=== PATIENT | female | born 1960 | race Caucasian/White ===

== ENCOUNTER 2017-02-13 18:08 | Emergency (ER) | payer BC, OTHER ==
[2017-02-13 18:39] VITALS: BP 127/81
[2017-02-13] MEDS ORDERED: methylPREDNISolone 125 MG* 2 ML VIAL IM ONE (18:51)
--- NOTE | 2017-02-13 18:56 | UC ---
Lower Extremity/Ankle HPI - HPI Summary HPI Summary: Patient has had sudden redness itching of bilateral lower extremities, they are not swollen, she also states her back and face have been itching. starte around 4 hours ago - History of Current Complaint Chief Complaint: UCLowerExtremity Stated Complaint: RIGHT LEG SWELLING Hx Obtained From: Patient Hx Last Menstrual Period: n/a ?: No Onset/Duration: Sudden Onset, Lasting Weeks Severity Initially: Moderate Severity Currently: Moderate Aggravating Factor(s): Standing, Ambulation Alleviating Factor(s): Rest Able to Bear Weight: Yes - Allergies/Home Medications Allergies/Adverse Reactions: Allergies Allergy/AdvReac Type Severity Reaction Status Date / Time Molds & Smuts Allergy Severe Hives Verified 02/13/17 18:39 Penicillins Allergy Severe Hives Verified 02/13/17 18:39 Cefprozil [From Cefzil] Allergy Intermediate Hives Verified 02/13/17 18:39 Tree Nuts Allergy Hives Verified 02/13/17 18:39 Home Medications: Home Medications Dapagliflozin Propanediol [Farxiga] 5 mg PO DAILY 02/13/17 [History Confirmed ] PMH/Surg Hx/FS Hx/Imm Hx Previously Healthy: Yes Endocrine History: Diabetes - Surgical History Surgical History: Yes Surgery Procedure, Year, and Place: Hysterectomy, Fusion C5-6-7, , cholecystectomy. Open heart surgery valve repair age 15. - Social History Alcohol Use: None Substance Use Type: None Smoking Status (MU): Never Smoked Tobacco - Immunization History Most Recent Influenza Vaccination: no Review of Systems Constitutional: Negative Skin: Rash Eyes: Negative ENT: Negative Respiratory: Negative Cardiovascular: Negative Gastrointestinal: Negative Genitourinary: Negative Motor: Negative Neurovascular: Negative Musculoskeletal: Negative Neurological: Negative Psychological: Negative Is Patient Immunocompromised?: No All Other Systems Reviewed And Are Negative: Yes Physical Exam Triage Information Reviewed: Yes Vital Signs: Initial Vital Signs Temp 98.4 F 02/13/17 18:33 Pulse 92 02/13/17 18:33 Resp 16 02/13/17 18:33 BP 127/81 02/13/17 18:33 Pulse Ox 96 02/13/17 18:33 Vital Signs Reviewed: No Eye Exam: Normal ENT Exam: Normal Dental Exam: Normal Neck exam: Normal Respiratory Exam: Normal Respiratory: Positive: Chest non-tender, Lungs clear, Normal breath sounds Abdominal Exam: Normal Abdomen Description: Positive: Nontender, No Organomegaly, Soft Bowel Sounds: Positive: Present Musculoskeletal Exam: Normal Musculoskeletal: Positive: Strength Intact, ROM Intact, No Edema Neurological Exam: Normal Neurological: Positive: Alert Skin: Positive: Other - mild redness in bilateral lower extremities Lower Extremity Course/Dx - Course Course Of Treatment: hx obtained, exam performed ,meds reviewed, solumedrol given, redness and pruritis decreased, recommend follow up if not clearing - Differential Dx/Diagnosis Differential Diagnosis/HQI/PQRI: Cellulitis, Other Provider Diagnoses: allergic reaction Discharge - Discharge Plan Condition: Stable Disposition: HOME Referrals: Kristie Plata PA [Physician [employer]] - Additional Instructions: 1. take the medications as prescribed 2. daily Zyrtec for the next 2 weeks 3. Follow up if symptoms worsen or persist.
== END 2017-02-13 20:07 | disposition home or self-care (01) ==
LOC: UCCORT 18:08
DX: T78.40XA Allergy, unspecified, initial encounter (principal); R21 Rash and other nonspecific skin eruption; X58.XXXA Exposure to other specified factors, initial encounter; Z88.1 Allergy status to other antibiotic agents; Z88.0 Allergy status to penicillin
CPT/HCPCS: 96372; 99202; G0463; J2930

== ENCOUNTER 2017-05-21 10:18 | Emergency (ER) | payer OTHER ==
[2017-05-21 12:43] VITALS: BP 140/70
--- NOTE | 2017-05-21 13:08 | UC ---
FLU HPI - HPI Summary HPI Summary: Started with fever and body aches 5 days ago. Now has nasal congestion, WATERS, and coughing with wheezing. Hx of mild asthma without recent need for meds. Has been fever-free for 2 days but still feels exhausted and rotten. - History of Current Complaint Chief Complaint: UCGeneralIllness Stated Complaint: FLU LIKE Time Seen by Provider: 05/21/17 12:44 Hx Obtained From: Patient Hx Last Menstrual Period: n/a ?: No Onset/Duration: Gradual Onset, Lasting Days Severity Currently: Mild Severity Initially: Moderate Associated Signs & Symptoms: Positive: Fever, Cough, Sore Throat, Nasal Congestion, Headache, Diarrhea - Allergy/Home Medications Allergies/Adverse Reactions: Allergies Allergy/AdvReac Type Severity Reaction Status Date / Time Molds & Smuts Allergy Severe Hives Verified 05/21/17 12:36 Penicillins Allergy Severe Hives Verified 05/21/17 12:36 Cefprozil [From Cefzil] Allergy Intermediate Hives Verified 05/21/17 12:36 Tree Nuts Allergy Hives Verified 05/21/17 12:36 PMH/Surg Hx/FS Hx/Imm Hx Endocrine History: Diabetes Other Cardiovascular History: valve repair, VonW disease - Surgical History Surgical History: Yes Surgery Procedure, Year, and Place: Hysterectomy, Fusion C5-6-7, , cholecystectomy. Open heart surgery valve repair age 15. BILAT CARPAL TUNNEL, MENISCUS TEAR - Family History Known Family History: Positive: Hypertension - Social History Occupation: Employed Full-time Alcohol Use: None Substance Use Type: None Smoking Status (MU): Never Smoked Tobacco - Immunization History Most Recent Influenza Vaccination: 2017 Review of Systems Constitutional: Fever, Chills, Fatigue Skin: Negative Eyes: Negative ENT: Sore Throat, Nasal Discharge, Sinus Congestion Respiratory: Shortness Of Breath, Cough Cardiovascular: Negative Gastrointestinal: Negative Genitourinary: Negative Motor: Negative Neurovascular: Negative Musculoskeletal: Negative Neurological: Headache Psychological: Negative Is Patient Immunocompromised?: No All Other Systems Reviewed And Are Negative: Yes Physical Exam Triage Information Reviewed: Yes Appearance: Well-Appearing, No Pain Distress, Obese Vital Signs: Initial Vital Signs Temp 97.6 F 05/21/17 12:37 Pulse 92 05/21/17 12:37 Resp 20 05/21/17 12:37 BP 140/70 05/21/17 12:37 Pulse Ox 95 05/21/17 12:37 Vital Signs Reviewed: Yes Eye Exam: Normal Eyes: Positive: Conjunctiva Clear ENT: Positive: Hearing grossly normal, Pharynx normal, Nasal congestion, TMs normal. Negative: TM bulging, Sinus tenderness Neck exam: Normal Neck: Positive: Supple, Nontender, No Lymphadenopathy Respiratory Exam: Normal Respiratory: Positive: Chest non-tender, Lungs clear, Normal breath sounds, No respiratory distress, No accessory muscle use Cardiovascular Exam: Normal Cardiovascular: Positive: RRR, No Murmur Musculoskeletal Exam: Normal Neurological Exam: Normal Neurological: Positive: Alert Psychological Exam: Normal Skin Exam: Normal Flu Course/Dx - Differential Dx/Diagnosis Provider Diagnoses: [id number]. bronchospasm Discharge - Discharge Plan Condition: Stable Disposition: HOME Prescriptions: Acetaminop/Codeine 30 MG TAB* [Tylenol/Codeine 30 MG TAB*] 1 tab PO Q6H PRN #20 tab MDD 5 PRN Reason: Pain Albuterol HFA INHALER* [Ventolin HFA Inhaler*] 1 - 2 puff INH Q4H PRN #1 mdi PRN Reason: wheeze, cough Benzonatate CAP* [Tessalon CAP*] 100 mg PO TID PRN #30 cap PRN Reason: Cough Patient Education Materials: Influenza (ED), Bronchospasm (ED) Forms: *Work Release Referrals: Gerri GARCIA,Leona Haji [Primary Care Provider] - Additional Instructions: Please come back if you have new fever, trouble breathing, or any significant worsening.
== END 2017-05-21 13:12 | disposition home or self-care (01) ==
LOC: UCCORT 10:18
DX: J11.1 Influenza due to unidentified influenza virus with other respiratory manifestations (principal); J98.01 Acute bronchospasm; E11.9 Type 2 diabetes mellitus without complications; Z91.048 Other nonmedicinal substance allergy status; Z88.0 Allergy status to penicillin; Z88.1 Allergy status to other antibiotic agents; Z91.018 Allergy to other foods
CPT/HCPCS: 99212; G0463

== ENCOUNTER 2018-02-26 09:16 | Emergency (ER) | payer OTHER ==
[2018-02-26] MEDS ORDERED: Aspirin 81 mg CHEW TAB* 81 MG TAB.CHEW PO ONE (09:31)
[2018-02-26 09:32] VITALS: BP 133/82
[2018-02-26] MEDS ORDERED: NS 0.9% 1000 ML* 1,000 ML IV ONE (09:33)
--- NOTE | 2018-02-26 09:38 | ED ---
HPI Chest Pain - HPI Summary HPI Summary: chest pain for the last several days, noted this and only relief is with burping , she has had persistent pressure in the chest since Monday without relief pain is with radiation to shoulders and back, no associated diaphoresis - History of Current Complaint Chief Complaint: UCChestPain Time Seen by Provider: 02/26/18 09:31 Hx Obtained From: Patient Hx Last Menstrual Period: n/a Onset/Duration: Started Days Ago Timing: Constant Initial Severity: Moderate Current Severity: Moderate Pain Intensity: 8 Chest Pain Location: Diffuse Chest Pain Radiates: Yes Chest Pain Radiates To:: Back Character: Pressure/Squeezing Aggravating Factor(s): Nothing Alleviating Factor(s): Other: - eructation Associated Signs and Symptoms: Positive: Chest Pain - Risk Factors Pulmonary Embolism Risk Factors: Negative TAD Risk Factors: Negative AMI/ACS Risk Factors: Sedentary Lifestyle, Diabetes, Obesity, Hypertension - Allergy/Home Medications Allergies/Adverse Reactions: Allergies Allergy/AdvReac Type Severity Reaction Status Date / Time MS Molds & Smuts Allergy Severe Hives Verified 05/21/17 12:36 [Molds & Smuts] MS Penicillins [Penicillins] Allergy Severe Hives Verified 05/21/17 12:36 MS Cefprozil [From Cefzil] Allergy Intermediate Hives Verified 05/21/17 12:36 Tree Nuts Allergy Hives Verified 05/21/17 12:36 PMH/Surg Hx/FS Hx/Imm Hx Previously Healthy: No Endocrine/Hematology History: Reports: Hx Diabetes Cardiovascular History: Reports: Other Cardiovascular Problems/Disorders - s/p repair ASD at age 15 Respiratory History: Reports: Hx Asthma - Surgical History Surgery Procedure, Year, and Place: Hysterectomy, Fusion C5-6-7, , cholecystectomy. Open heart surgery valve repair age 15. BILAT CARPAL TUNNEL, MENISCUS TEAR. [place] Infectious Disease History: No Infectious Disease History: Denies: Traveled Outside the [place] in Last 30 Days - Family History Known Family History: Positive: Hypertension - Social History Alcohol Use: None Substance Use Type: Reports: None Smoking Status (MU): Never Smoked Tobacco - Additional Comments History Additional Comments: hx. of von willebrands disease Review of Systems Constitutional: Negative Eyes: Negative ENT: Negative Positive: Chest Pain Positive: Cough Gastrointestinal: Negative Genitourinary: Negative Musculoskeletal: Negative Skin: Negative Neurological: Negative All Other Systems Reviewed And Are Negative: Yes Physical Exam Triage Information Reviewed: Yes Vital Signs On Initial Exam: Initial Vitals Temp Pulse Resp BP Pulse Ox 36.3 C 101 18 133/82 96 02/26/18 09:27 02/26/18 09:27 02/26/18 09:27 02/26/18 09:27 02/26/18 09:27 Vital Signs Reviewed: Yes Appearance: Positive: Well-Appearing Skin: Positive: Warm, Dry Head/Face: Positive: Normal Head/Face Inspection Eyes: Positive: Normal ENT: Positive: Normal ENT inspection Neck: Positive: Supple Respiratory/Lung Sounds: Positive: Clear to Auscultation Cardiovascular: Positive: Normal Abdomen Description: Positive: Nontender Bowel Sounds: Positive: Present Musculoskeletal: Positive: Normal Neurological: Positive: Normal Diagnostics - Vital Signs Vital Signs Temp Pulse Resp BP Pulse Ox 02/26/18 09:27 36.3 C 101 18 133/82 96 - Laboratory Lab Statement: Any lab studies that have been ordered have been reviewed, and results considered in the medical decision making process. Chest Pain Course/Dx - Diagnoses Provider Diagnoses: Chest pain Discharge - Sign-Out/Discharge Documenting (check all that apply): Patient Departure All imaging exams completed and their final reports reviewed: Yes - Discharge Plan Condition: Fair Disposition: AGAINST MEDICAL ADVICE Referrals: Leona Maldonado [Primary Care Provider] - - Billing Disposition and Condition Condition: FAIR Disposition: Against Medical Advice
== END 2018-02-26 09:58 | disposition left against medical advice (07) ==
LOC: UCCORT 09:16
DX: R07.9 Chest pain, unspecified (principal); Z88.0 Allergy status to penicillin; Z88.1 Allergy status to other antibiotic agents; E11.9 Type 2 diabetes mellitus without complications
CPT/HCPCS: 93005; 99212; A9270-GY; G0463

== ENCOUNTER 2022-05-10 09:16 | Inpatient (IN) ==
[~2022-05-10 09:16] MED LIST: Buffered Lidocaine 1% SYRIN 1 ml INTRADERM ONE; HYDROmorphone 1 MG/1 ML SYRINGE IV PRN; Lactated Ringers 1000 ml BAG 1,000 ML IV SCH; Naloxone 0.4 mg VIAL 0.4 mg/ml 1 ml VIAL IV PRN; Ondansetron 4 mg VIAL 2 MG/ML 2 ml VIAL IV PRN; fentaNYL 100 mcg/2 ml 50 MCG/ML VIAL IV PRN
[2022-05-10] MEDS ORDERED: Clindamycin 900 MG/D5W BAG 900 MG/50 ML BAG IVPB ONE (09:33)
[2022-05-10] MEDS ORDERED: Scopolamine 1 mg/72hr PATCH ONE (09:33)
[2022-05-10 09:42] LABS: Hematocrit 42 % (35-47); Hemoglobin 14.1 g/dL (12.0-16.0); Mean Corpuscular HGB Conc 34 g/dL (31-36); Mean Corpuscular Hemoglobin 28 pg (27-31); Mean Corpuscular Volume 83 fL (80-97); Mean Platelet Volume 8.7 fL (7.4-10.4); Platelet Count 285 10^3/uL (150-450); Red Blood Count 5.02 10^6 /uL (3.70-4.87); Red Cell Distribution Width 14 % (10-15); White Blood Count 8.2 10^3/uL (3.5-10.8)
[2022-05-10] MEDS ORDERED: Heparin 5000 UNITS/ML 1 mL VIAL ONE (09:45)
[2022-05-10] MEDS ORDERED: Buffered Lidocaine 1% SYRIN 1 ml ONE (09:46)
[2022-05-10 10:13] LABS: Activated Partial Thrombo Time 33.3 seconds (26.0-38.0)
[2022-05-10 10:20] LABS: Calcium 9.4 mg/dL (8.6-10.3); eGFR CKD-EPI 86.1 (>60)
[2022-05-10] MEDS ORDERED: Dexmedetomidine 200 mcg/2 ml 2 ml VIAL (200 mcg) ONE (14:05)
[2022-05-10] MEDS ORDERED: Propofol 10 MG/ML 20 ML BTL ONE (14:05)
[2022-05-10] MEDS ORDERED: Methylene Blue 0.5 % 50 MG/10 ML AMP IV ONE (14:05)
[2022-05-10] MEDS ORDERED: Rocuronium 50 mg VIAL 10 mg/ml 5 ml VIAL (50 mg) ONE ×3 (14:05→18:56)
[2022-05-10] MEDS ORDERED: fentaNYL 100 mcg/2 ml 50 MCG/ML VIAL ONE ×2 (14:05→15:21)
[2022-05-10] MEDS ORDERED: Lidocaine 2% PF 5 ML VIAL ONE (14:05)
[2022-05-10] MEDS ORDERED: Dexamethasone IV 4 MG/ML VIAL 1 ml VIAL ONE (15:28)
[2022-05-10] MEDS ORDERED: Ondansetron 4 mg VIAL 2 MG/ML 2 ml VIAL ONE (15:28)
[2022-05-10] MEDS ORDERED: HYDROmorphone 1 MG/1 ML SYRINGE IV SLOW PU PRN (21:07)
[2022-05-10] MEDS ORDERED: HYDROmorphone 0.5 MG/0.5 ML SYRINGE IV SLOW PU PRN (21:07)
[2022-05-10] MEDS ORDERED: Dextrose 50% Syringe 50 ml 25 GM/50 ML SYRINGE IV PUSH PRN (21:07)
[2022-05-10] MEDS ORDERED: Acetaminophen IV 1 GM/100ML 1,000 MG/100 ML BAG IV PRN (21:07)
[2022-05-10] MEDS ORDERED: Ondansetron 4 mg VIAL 2 MG/ML 2 ml VIAL IV PRN (21:07)
[2022-05-10] MEDS ORDERED: HYDROcodone/ACET. 7.5/325 LIQ 15 ML UDC PO PRN (21:07)
[2022-05-10] MEDS ORDERED: Albuterol HFA INHALER 8 gm MDI INH PRN (21:14)
[2022-05-11] MEDS: Lactated Ringers 1000 ml BAG 1,000 ML IV SCH ×4 (01:42→21:01)
[2022-05-11] MEDS: Heparin 5000 UNITS/ML 1 mL VIAL SUBCUT SCH ×3 (01:43→15:47)
[2022-05-11] MEDS: Famotidine IV 10 MG/ML 2 ml VIAL (20 mg) IV SLOW PU SCH ×2 (07:52→21:02)
[2022-05-11] MEDS ORDERED: Benzocaine/Menthol LOZ MT PRN (11:28)
[2022-05-11] MEDS ORDERED: NS 0.45% 1000 ml BAG 1,000 ML IV SCH (22:00)
[2022-05-11] MEDS ORDERED: D5W 1/2 NS KCl 20 meq 1000 ml 1,000 ML IV SCH (22:00)
[2022-05-12] MEDS: Heparin 5000 UNITS/ML 1 mL VIAL SUBCUT SCH ×2 (00:48→08:07)
[2022-05-12] MEDS: Famotidine IV 10 MG/ML 2 ml VIAL (20 mg) IV SLOW PU SCH (09:00)
[2022-05-12 11:17] VITALS: BP 128/76
== END 2022-05-12 12:10 | disposition home or self-care (01) | DRG 403 ==
LOC: AA 09:16 → SSU 22:52
PROVIDERS: ADMIT Surgery; ATTEND Surgery